=== PATIENT | male | born 1970 | race Caucasian/White ===

== ENCOUNTER 2022-11-12 14:36 | Emergency (ER) | payer OTHER, SELFPAY ==
[2022-11-12 14:41] VITALS: BP 140/86; PULSE 116; O2SAT 98
[2022-11-12 14:43] VITALS: BP 155/78; PULSE 71; RESP 19; TEMP 36.6; O2SAT 99; BMI 28.9
--- NOTE | 2022-11-12 14:43 | ED.DENTAL ---
HPI - Dental/Oral General Chief complaint: Dental/Oral <STALIN Bal Last Filed: 11/12/22 14:51> Stated complaint: TOOTH INF,PAIN,ANTIBIOTICS X3 DAYS <STALIN Bal Last Filed: 11/12/22 14:51> Time Seen by Provider: 11/12/22 15:08 <STALIN Bal Last Filed: 11/12/22 14:51> Source: patient <STALIN Monae Last Filed: 11/12/22 15:22> Mode of arrival: ambulatory <STALIN Monae Last Filed: 11/12/22 15:22> Limitations: no limitations <STALIN Monae Last Filed: 11/12/22 15:22> History of Present Illness HPI Narrative: 52-year-old male presents with dental pain to the left lower molar region worsening despite taking amoxicillin clavulanic acid for the past 5 days he states he thinks it is infected and antibiotics at helping. He says his main concern is he is having severe pain. Ibuprofen has not helped. Denies fevers, chills, changes in voice, chest pain, shortness of breath, nausea, vomiting, abdominal pain, headache, vision changes, dizziness , neck pain. Has not yet seen a dentist <STALIN Monae Last Filed: 11/12/22 15:22> Related Data Home medications: Previous Rx's Medication Instructions Recorded amoxicillin 875 mg-potassium 1 tab PO Q12H 10 days #20 tabs 11/07/22 clavulanate 125 mg tablet ibuprofen 600 mg tablet 600 mg PO Q6H PRN pain #60 tabs 11/07/22 morphine 15 mg immediate release 15 mg PO Q6H PRN pain 5 days #10 11/12/22 tablet tabs <STALIN Bal Last Filed: 11/12/22 14:51> Allergies/adverse reactions: Allergies Allergy/AdvReac Type Severity Reaction Status Date / Time No Known Allergies Allergy Verified 11/12/22 14:43 <STALIN Bal Last Filed: 11/12/22 14:51> Review of Systems Review of Systems: Constitutional : No Fever, No Chills ENT/Mouth : No swallowing difficulty, no change in voice, positive dental pain, positive jaw pain, positive facial swelling Eyes: No Eye Pain, No Swelling Cardiovascular : No Chest Pain, No SOB Respiratory : No Cough, No Sputum Gastrointestinal : No Nausea, No Vomiting, No Diarrhea Genitourinary : No Dysuria Musculoskeletal : No Myalgias Skin : No rash Neuro : No Weakness, No Numbness, No Headache <STALIN Monae - Last Filed: 11/12/22 15:22> Yes all other systems are reviewed and are negative <STALIN Monae - Last Filed: 11/12/22 15:22> [facility] Past Medical History Attestation statement: The following information was validated with the patient. <STALIN Monae - Last Filed: 11/12/22 15:22> Source: old records reviewed and nursing notes reviewed <STALIN Monae - Last Filed: 11/12/22 15:22> Physical Exam Vital Signs: Vital Signs: Last Vital Signs Temp 98 F 11/12/22 14:43 Pulse 71 11/12/22 14:43 Resp 19 11/12/22 14:43 BP 155/78 H 11/12/22 14:43 Pulse Ox 99 11/12/22 14:43 O2 Del Method Room Air 11/12/22 14:43 BMI result Body Mass Index 28.9 <STALIN Bal - Last Filed: 11/12/22 14:51> Vital Signs: Last Vital Signs Temp 98 F 11/12/22 14:43 Pulse 71 11/12/22 14:43 Resp 11/12/22 14:43 BP 155/78 H 11/12/22 14:43 Pulse Ox 99 11/12/22 14:43 O2 Del Method Room Air 11/12/22 14:43 BMI result Body Mass Index 28.9 vss <STALIN Monae - Last Filed: 11/12/22 15:22> Appearance: Alert.? Oriented X3.? No acute distress.? Head: Normocephalic, atraumatic, no step-offs or deformities Eyes: Pupils equal, round and reactive to light.? ENT: Pharynx normal.???Significant tooth decay on tooth 21, 20, and 18.? Multiple missing and broken teeth.? Halitosis noted. No trismus. Patient controlling secretions well. Neck: Normal inspection.? Neck supple.? CVS: Normal heart rate and rhythm.? Pulses normal.? Respiratory: No respiratory distress.? Breath sounds normal.? Abdomen: Soft and nontender.? Skin: Skin warm and dry.? Normal skin color.? Normal skin turgor.? Extremities: No lower extremity edema.? No calf ttp. 5/5 strength to bilateral upper and lower extremities Back: No midline tenderness, no C-spine tenderness, full range of motion, no CVA tenderness bilaterally Neuro: Oriented X 3.? No motor deficit.? No sensory deficit. CN 2-12 intact <STALIN Monae - Last Filed: 11/12/22 15:22> Course Course Course Narrative: RME: 52yo M w/with a past medical history of dental caries currently on Augmentin since 11/07 after being evaluated in Urgent Care presenting to the ED via EMS complaining of persistent/worsening pain. Reports compliance with antibiotic + multiple dental caries. Left lower incisor broken with gingival tenderness. No fluctuance or induration. Patient pale, appears very uncomfortable, will need pain control Full HPI, ROS and PE to be performed by primary ED provider. <STALIN Bal - Last Filed: 11/12/22 14:51> Reevaluation(s) Reevaluation #1: Patient to be discharged home with morphine &tordol advised return with new or worsening symptoms educated him to continue taking Augmentin. And follow-up with dentist as soon as possible. Educated patient on diagnosis and treatment plan, answered all question, patient verbalizes understanding. At this time patient will be discharged home, advised to return with new or worsening symptoms. Educated on worrisome signs and symptoms and when to return. At this time I feel comfortable discharge home. Patient verbalizes that he has an appointment this coming week with dentist on [facility] <STALIN Monae - Last Filed: 11/12/22 15:22> Time: 15:18 <STALIN Monae - Last Filed: 11/12/22 15:22> Medications Administered Discontinued Medications Generic Name Dose Route Start Last Admin Trade Name Freq PRN Reason Stop Dose Admin Morphine Sulfate 15 mg 11/12/22 15:11 11/12/22 15:18 Morphine Sulfate Immed Release 15 Mg Tablet PO 11/12/22 15:12 15 mg ONCE ONE Administration <STALIN Bal Last Filed: 11/12/22 14:51> Medications Administered Discontinued Medications Generic Name Dose Route Start Last Admin Trade Name Casie PRN Reason Stop Dose Admin Morphine Sulfate 15 mg 11/12/22 15:11 11/12/22 15:18 Morphine Sulfate Immed Release 15 Mg Tablet PO 11/12/22 15:12 15 mg ONCE ONE Administration <STALIN Monae Last Filed: 11/12/22 15:22> Medical Decision Making Medical Decision Making MDM Narrative: 52-year-old male presents with dental pain for the past week not improving despite oral antibiotics and ibuprofen. Has not yet seen a dentist. Physical exam significant for Pharynx normal.???Significant tooth decay on tooth 21, 20, and 18.? Multiple missing and broken teeth.? Halitosis noted. No trismus. Patient controlling secretions well. This is likely dental caries, no signs of abscess. No signs of airway compromise. No trismus. Plan will give him morphine for pain and have him follow up with Dentistry. No need for further imaging I do not suspect abscess no fluctuance on exam. <STALIN Monae Last Filed: 11/12/22 15:22> Differential Diagnosis Differential Diagnoses: The differential diagnosis associated with the presentation includes <STALIN Monae Last Filed: 11/12/22 15:22> This is likely dental caries, no signs of abscess. No signs of airway compromise. No trismus. <STALIN Monae Last Filed: 11/12/22 15:22> Admission/Observation Consideration of admission/observation: Escalation of care including admission/observation considered <STALIN Monae Last Filed: 11/12/22 15:22> Prescription Management I considered prescription management with: Pain Medication <STALIN Monae Last Filed: 11/12/22 15:22> Core Measures AMI core measures followed: Yes <STALIN Monae Last Filed: 11/12/22 15:22> Measure exclusions: not indicated <STALIN Monae Last Filed: 11/12/22 15:22> Discharge Plan Discharge Clinical Impression: Pain due to dental caries, Dental caries <STALIN Bal Last Filed: 11/12/22 14:51> Patient Disposition: Home, Self-Care <STALIN Bal Last Filed: 11/12/22 14:51> Additional Instructions: Take your medications as prescribed. If you were prescribed antibiotics today, it is important that you take your medication to their entirety, do not skip any doses, do not finish them early. Follow-up with your primary care provider this week. Return to the emergency department with new or worsening symptoms. Such as fevers, chills, chest pain, shortness of breath, nausea, vomiting, dizziness, headache, vision changes, lethargy In case of emergency call 911 Toradol has been sent to your pharmacy, you tolerated this well in the department. Please take this as prescribed do not take this with ibuprofen, or other NSAIDs, do not mix this with alcohol. Side effects of this medication including increased risk for bleeding and possible kidney injury. A narcotic has been sent to your pharmacy please take this as prescribed. Do not take more than the prescribed dose. Narcotic medications can cause addiction. Please do not mix them with alcohol. Do not take them while driving or operating machinery. Do not take them with any other narcotics. Do not share them with friends or family. They can cause constipation. Take them only for severe pain. <STALIN Bal Last Filed: 11/12/22 14:51> Prescriptions: New morphine 15 mg tablet 15 mg PO Q6H PRN (Reason: pain) 5 Days Qty: 10 0RF Rx Instructions: Partial Fill upon patient request. No Action amoxicillin-pot clavulanate 875-125 mg tablet 1 tab PO Q12H 10 Days Qty: 20 0RF ibuprofen 600 mg tablet 600 mg PO Q6H PRN (Reason: pain) Qty: 60 0RF <STALIN Bal Last Filed: 11/12/22 14:51> Referrals: ED Physician,Generic [Emergency Provider] - 2 days <STALIN Bal Last Filed: 11/12/22 14:51> Stand Alone Forms: Work/School Release <STALIN Bal - Last Filed: 11/12/22 14:51>
[2022-11-12] MEDS: Morphine Sulfate Immed Release 15 MG TABLET PO (15:18)
--- NOTE | 2022-11-12 15:20 | PC.NURSE ---
pt medicated per mar for 10/10 left tooth pain
[2022-11-12] MEDS: Ketorolac Tromethamine 15 MG/ML VIAL 30 MG IM (15:34)
== END 2022-11-12 15:45 | disposition home or self-care (01) ==
PROVIDERS: Emergency Provider Emergency Medicine
DX: K02.9 Dental caries, unspecified (principal); Z79.899 Other long term (current) drug therapy
CPT/HCPCS: 99283; J1885

== ENCOUNTER 2023-01-22 22:42 | Emergency (ER) | payer OTHER, SELFPAY ==
--- NOTE | ~2023-01-22 | CT_ITS ---
EXAMINATION: CT ABDOMEN AND PELVIS WITH CONTRAST CLINICAL INFORMATION: Periumbilical right-sided abdominal pain COMPARISON: None available. TECHNIQUE: Multidetector volumetric images were obtained from the superior aspect of the liver through the pubic symphysis following administration 85 mL of Omnipaque 350 intravenous contrast. Sagittal and coronal reformatted images were obtained on the technologist's workstation. Oral contrast: No This CT examination was performed using dose optimization techniques as appropriate, variously including the following: *Automated exposure control *Adjustment of mA and/or kV according to patient size (this includes techniques or standardized protocols for targeted exams where dose is matched to indication/reason for exam; i.e. extremities or head) *Use of iterative reconstruction technique DLP: 553 mGy-cm FINDINGS: LUNG BASES: The visualized lung bases are unremarkable. LIVER, GALLBLADDER, AND BILIARY TREE: The liver is normal in size, shape, and attenuation. No focal hepatic lesion or biliary ductal dilatation is present. The gallbladder is unremarkable with no evidence of radiopaque gallstones, gallbladder wall thickening, or obvious pericholecystic inflammatory changes. PANCREAS: Unremarkable. SPLEEN: Mild splenomegaly at 12.3 cm. ADRENAL GLANDS: Unremarkable. KIDNEYS AND URETERS: The kidneys are normal in size, shape, and attenuation. No hydronephrosis, hydroureter, or calculi seen. No perinephric stranding. BLADDER: Unremarkable. GASTROINTESTINAL TRACT: The colon is unremarkable. The terminal ileum is of normal caliber. Some more proximal small bowel loops are mildly dilated and fluid-filled, as large as 2.8 cm. A definite transition zone is not seen. Some minimal inflammatory changes are seen around some of bowel loops. The appendix appears normal. ABDOMINAL WALL: No significant hernia is appreciated. LYMPH NODES: No retroperitoneal lymphadenopathy. VASCULAR: Unremarkable. PELVIC VISCERA: Unremarkable. OSSEOUS STRUCTURES: Unremarkable. CT/CT abdomen pelvis w IV con IMPRESSION: 1. Mildly dilated fluid-filled small bowel loops with some minimal inflammatory changes around some of the small bowel loops. Findings could represent enteritis. A definite transition zone is not seen to suggest mechanical small bowel obstruction.. The terminal ileum is of normal caliber. 2. The appendix appears normal. 3. Mild splenomegaly. Fleischner guidelines were followed.
[2023-01-22 23:20] VITALS: BP 122/83; PULSE 84; O2SAT 97; BMI 28.9
[2023-01-22 23:24] VITALS: BP 117/75; PULSE 66; RESP 14; TEMP 36.8; O2SAT 96
--- NOTE | 2023-01-22 23:27 | ECG_ITS ---
Test Reason : ABD PAIN Blood Pressure : / mmHG Vent. Rate : 069 BPM Atrial Rate : 069 BPM P-R Int : 136 ms QRS Dur : 078 ms QT Int : 400 ms P-R-T Axes : 054 -14 051 degrees QTc Int : 428 ms Normal sinus rhythm Normal ECG No previous ECGs available Referred By: Generic ED Physician Electronically Signed By:Sandeep Ferguson
[2023-01-22 23:41] LABS: MANUAL DIFF FLAG NO
[2023-01-22 23:43] LABS: Basophils Absolute Auto 0.1 X10*3/uL (0.0-0.2); Basophils Percent Auto 0.5 % (0-2); Eosinophils Absolute Auto 0.2 X10*3/uL (0.0-0.4); Eosinophils Percent Auto 1.3 % (0-4); Hematocrit 44.7 % (42.0-52.0); Hemoglobin 14.3 g/dl (14.0-18.0); Imm Gran Abs Auto 0.09 X10*3/uL (0.00-0.03); Imm Gran Pct Auto 0.5 % (0.0-0.4); Lymphocytes Absolute Auto 2.1 X10*3/uL (1.2-4.9); Lymphocytes Percent Auto 11.9 % (20-40); Mean Corpuscular Hemoglobin 27.2 pg (27.0-33.0); Mean Platelet Volume 9.9 fL (9.4-12.4); Monocytes Absolute Auto 0.9 X10*3/uL (0.1-1.2); Monocytes Percent Auto 5.3 % (2-11); Neutrophils Absolute Auto 14.1 x10*3/uL (2.0-8.3); Neutrophils Percent Auto 80.5 % (45-73); Platelet Count 305 X10*3/uL (160-400); Red Blood Count 5.26 X10*6/uL (4.60-5.80); White Blood Count 17.5 X10*3/uL (4.8-10.8)
[2023-01-22] MEDS: fentaNYL citrate/PF 100 MCG/2 ML VIAL 25 MCG IVPUSH (23:45)
[2023-01-22] MEDS: ondansetron HCL 4 MG/2 ML VIAL IVPUSH (23:46)
--- NOTE | 2023-01-22 23:57 | MHC.EDTECH ---
This tech assumed care of pt at 2300,Pt was placed in hospital attire, vitals taken and EKG done. UA collected and sent to lab. Call blandon within reach
[2023-01-23 00:05] LABS: Alanine Aminotransferase 11 U/L (0-40); Albumin Level 4.3 g/dL (3.5-5.0); Alkaline Phosphatase 83 U/L (39-117); Anion Gap 15 (12-20); Aspartate Amino Transferase 16 U/L (5-37); Bilirubin Total 0.2 mg/dL (0.0-1.0); Blood Urea Nitrogen 12 mg/dL (9-16); Calcium 9.7 mg/dL (8.4-10.2); Carbon Dioxide 30 mmol/L (22-29); Chloride 99 mmol/L (96-108); Creatinine Clr Calc Pharmacy 94.1; Estimated Glomerular Filt Rate > 60; Ethanol < 10 mg/dL; Glucose Random 109 mg/dL (60-115); Lipase 17 U/L (8-78); Potassium 4.1 mmol/L (3.3-5.1); Sodium 140 mmol/L (135-145); Total Protein 7.2 g/dL (6.5-8.0)
--- NOTE | 2023-01-23 00:05 | ED_ITS ---
HPI - Abdominal Pain General Chief Complaint: Abdominal Pain Stated Complaint: abd pain, per ems Time Seen by Provider: 01/22/23 23:33 Source: patient Mode of arrival: EMS History of Present Illness HPI narrative: 52-year-old male who arrives via EMS with onset of periumbilical discomfort this started approximately 1500 this afternoon and is associated with nausea and vomiting, chills and reports a burning sensation and has continued to pass flatus. He denies any intra-abdominal surgeries. Related Data Previous Rx's Medication Instructions Recorded amoxicillin 875 mg-potassium 1 tab PO Q12H 10 days #20 tabs 11/07/22 clavulanate 125 mg tablet ibuprofen 600 mg tablet 600 mg PO Q6H PRN pain #60 tabs 11/07/22 ketorolac 10 mg tablet 10 mg PO TID PRN pain 5 days #15 11/12/22 tabs morphine 15 mg immediate release 15 mg PO Q6H PRN pain 5 days #10 11/12/22 tablet tabs ondansetron 4 mg disintegrating 4 mg PO Q8H PRN nausea and 01/23/23 tablet vomiting #7 tabs Allergies Allergy/AdvReac Type Severity Reaction Status Date / Time No Known Allergies Allergy Verified 11/12/22 14:43 Review of Systems Review of Systems Pertinent positives and negatives as stated in HPI [facility] Social History Social History Alcohol intake: current Alcohol intake frequency: holidays/special occasions only Smoked in Last 30 Days: Yes Use of substances other than those prescribed or required for medical reasons: No Physical Exam ED Vital Signs: Vital Signs - 24 hr 01/22/23 23:24 Temperature 98.3 F Pulse Rate 66 Respiratory Rate 14 Blood Pressure 117/75 Pulse Oximetry 96 Oxygen Delivery Method Room Air BMI result Body Mass Index 28.9 VITAL SIGNS: Reviewed. GENERAL: Well developed, well nourished, in moderate distress. HEAD: Normocephalic/atraumatic EYES: PERRLA, EOMI EARS: Ext canals without abnormality NOSE: Nares patent bilateral OROPHARYNX: no oral lesions noted, posterior pharynx clear NECK: Supple, no adenopathy LUNGS: Normal breath sounds. No adventitious sounds or accessory muscle use. SpO2<96> CARDIOVASCULAR: Regular rate and rhythm without noted murmurs ABDOMEN: Soft, periumbilical pain that extends over into the right lower quadrant without rebound, non-distended with bowel sounds. MUSCULOSKELETAL: No tenderness, deformities, or effusions noted on gross inspection. EXTREMITIES: No cyanosis, clubbing or edema. SKIN: Inspection of the skin reveals no rashes NEUROLOGIC: Alert and oriented x 4. Strength and sensation to light touch were grossly intact x 4. Medical Decision Making Medical Decision Making [facility] Narrative: 52-year-old male with history and clinical presentation, DDX: Gastritis, panc reatitis, cholecystitis, appendicitis. I reviewed all investigations and hematologic indices are consistent with stress leukocytosis with left shift otherwise no thrombocytopenia or anemia noted. Ch emistry indices are negative for electrolyte derangements, PAULIE and no derangements of liver enzymes or lipase values so doubt pancreatitis. Urinalysis negative for acute infection, but UDS positive for fentanyl and cocaine which is relevant in the setting of the CT scan which is negative for evidence this is just cholecystitis or acute appendicitis instead demonstrates inflammatory changes of the small bowel. These findings may be consistent with a gastroenteritis or reaction to illicit substances. Patient has received 2 treatments of 4 mg of Zofran, IV fluids as well as 10 mg Compazine and the nausea/vomiting appears to be under better control. EKG without acute ischemic findings. Differential Diagnosis Differential Diagnoses: The differential diagnosis associated with the presentation includes Please see the discussion above Admission/Observation Consideration of admission/observation: Escalation of care including admission/observation considered Please see the discussion above Lab Data [facility] Lab Attestation statement: I reviewed the patient's lab results. Please see the discussion above 01/22/23 23:36 01/22/23 23:36 Labs: Lab Results 01/22/23 01/22/23 01/23/23 Range/Units 23:36 23:36 00:00 WBC 17.5 H (4.8-10.8) X10*3/uL RBC 5.26 (4.60-5.80) X10*6/uL Hgb 14.3 (14.0-18.0) g/dl Hct 44.7 (42.0-52.0) % MCV 85.0 (80.0-98.0) fL MCH 27.2 (27.0-33.0) pg MCHC 32.0 (31.0-36.0) g/dl RDW 14.0 (11.0-16.0) % Plt Count 305 (160-400) X10*3/uL MPV 9.9 (9.4-12.4) fL Immature Gran % (Auto) 0.5 H (0.0-0.4) % Neut % (Auto) 80.5 H (45-73) % Lymph % (Auto) 11.9 L (20-40) % Stafford % (Auto) 5.3 (2-11) % Eos % (Auto) 1.3 (0-4) % Baso % (Auto) 0.5 (0-2) % Lymph # (Auto) 2.1 (1.2-4.9) X10*3/uL Stafford # (Auto) 0.9 (0.1-1.2) X10*3/uL Eos # (Auto) 0.2 (0.0-0.4) X10*3/uL Baso # (Auto) 0.1 (0.0-0.2) X10*3/uL Abs Immat Gran (auto) 0.09 H (0.00-0.03) X10*3/uL Absolute Neuts (auto) 14.1 H (2.0-8.3) x10*3/uL Absolute Nucleated RBC 0.000 (0.0-0.012) X10*3/uL Nucleated RBC % (auto) 0.0 (0.0-0.2) /100WBC Sodium 140 (135-145) mmol/L Potassium 4.1 (3.3-5.1) mmol/L Chloride 99 (96-108) mmol/L Carbon Dioxide 30 H (22-29) mmol/L Anion Gap 15 (12-20) BUN 12 (9-16) mg/dL Creatinine 0.98 (0.5-1.4) mg/dL Estim Creat Clear Calc 94.1 Estimated GFR > 60 Random Glucose 109 (60-115) mg/dL Calcium 9.7 (8.4-10.2) mg/dL Total Bilirubin 0.2 (0.0-1.0) mg/dL AST 16 (5-37) U/L ALT 11 (0-40) U/L Alkaline Phosphatase 83 (39-117) U/L Total Protein 7.2 (6.5-8.0) g/dL Albumin 4.3 (3.5-5.0) g/dL Lipase 17 (8-78) U/L Urine Color Yellow Urine Appearance Clear Urine pH 7.5 (5.0-9.0) Ur Specific [place] >= 1.030 H (1.005-1.025) Urine Protein Trace (Neg-Trace) mg/dL Urine Glucose (UA) Negative (Negative) mg/dL Urine Ketones Trace (Negative) mg/dL Urine Blood Negative (Negative) Urine Nitrite Negative (Negative) Ur Leukocyte Esterase Negative (Negative) Urine Opiates Screen (Not Detect) Urine Fentanyl Screen (Not Detect) Ur Barbiturates Screen (Not Detect) Ur Phencyclidine Scrn (Not Detect) Ur Amphetamines Screen (Not Detect) U Benzodiazepines Scrn (Not Detect) Urine Cocaine Screen (Not Detect) U Marijuana (THC) Screen (Not Detect) Ethyl Alcohol < 10 mg/dL 01/23/23 Range/Units 00:00 WBC (4.8-10.8) X10*3/uL RBC (4.60-5.80) X10*6/uL Hgb (14.0-18.0) g/dl Hct (42.0-52.0) % MCV (80.0-98.0) fL MCH (27.0-33.0) pg MCHC (31.0-36.0) g/dl RDW (11.0-16.0) % Plt Count (160-400) X10*3/uL MPV (9.4-12.4) fL Immature Gran % (Auto) (0.0-0.4) % Neut % (Auto) (45-73) % Lymph % (Auto) (20-40) % Stafford % (Auto) (2-11) % Eos % (Auto) (0-4) % Baso % (Auto) (0-2) % Lymph # (Auto) (1.2-4.9) X10*3/uL Stafford # (Auto) (0.1-1.2) X10*3/uL Eos # (Auto) (0.0-0.4) X10*3/uL Baso # (Auto) (0.0-0.2) X10*3/uL Abs Immat Gran (auto) (0.00-0.03) X10*3/uL Absolute Neuts (auto) (2.0-8.3) x10*3/uL Absolute Nucleated RBC (0.0-0.012) X10*3/uL Nucleated RBC % (auto) (0.0-0.2) /100WBC Sodium (135-145) mmol/L Potassium (3.3-5.1) mmol/L Chloride (96-108) mmol/L Carbon Dioxide (22-29) mmol/L Anion Gap (12-20) BUN (9-16) mg/dL Creatinine (0.5-1.4) mg/dL Estim Creat Clear Calc Estimated GFR Random Glucose (60-115) mg/dL Calcium (8.4-10.2) mg/dL Total Bilirubin (0.0-1.0) mg/dL AST (5-37) U/L ALT (0-40) U/L Alkaline Phosphatase (39-117) U/L Total Protein (6.5-8.0) g/dL Albumin (3.5-5.0) g/dL Lipase (8-78) U/L Urine Color Urine Appearance Urine pH (5.0-9.0) Ur Specific [place] (1.005-1.025) Urine Protein (Neg-Trace) mg/dL Urine Glucose (UA) (Negative) mg/dL Urine Ketones (Negative) mg/dL Urine Blood (Negative) Urine Nitrite (Negative) Ur Leukocyte Esterase (Negative) Urine Opiates Screen Not Detected (Not Detect) Urine Fentanyl Screen POSITIVE H (Not Detect) Ur Barbiturates Screen Not Detected (Not Detect) Ur Phencyclidine Scrn Not Detected (Not Detect) Ur Amphetamines Screen Not Detected (Not Detect) U Benzodiazepines Scrn Not Detected (Not Detect) Urine Cocaine Screen POSITIVE H (Not Detect) U Marijuana (THC) Screen Not Detected (Not Detect) Ethyl Alcohol mg/dL Independent Interpretation I performed an independent interpretation of an: EKG Interpretation: Normal sinus rhythm, HR-69, no STEMI, NH/QRS/QTC is within normal limits. Radiology Impression Radiologist Impression: No appendicitis or cholecystitis, otherwise my interpretation is in agreement with radiology's impression. Medications Administered Discontinued Medications Generic Name Dose Route Start Last Admin Trade Name Freq PRN Reason Stop Dose Admin Fentanyl 25 mcg 01/22/23 23:36 01/22/23 23:45 Fentanyl Citrate/Pf 100 Mcg/2 Ml Vial IVPUSH 01/22/23 23:37 25 mcg ONCE ONE Administration Protocol Sodium Chloride 1,000 mls @ 999 mls/hr 01/22/23 23:45 01/23/23 00:35 Ns IV 01/23/23 00:45 999 mls/hr .Q1H1M PALLAVI Administration Iohexol 85 ml 01/23/23 00:29 01/23/23 00:30 Iohexol 350 Mg/Ml 100 Ml Infus..Btl IV 01/23/23 00:30 85 ml ONCE ONE Administration Ondansetron HCl 4 mg 01/22/23 23:35 01/22/23 23:46 Ondansetron Hcl 4 Mg/2 Ml Vial IVPUSH 01/22/23 23:36 4 mg ONCE ONE Administration Prochlorperazine Edisylate 10 mg 01/23/23 00:15 01/23/23 00:34 Prochlorperazine Edisylate 10 Mg/2 Ml Vial IVPUSH 01/23/23 00:16 10 mg ONCE ONE Administration Critical Care Time Critical Care Time Critical Care Time: Yes Total Critical Care Time: 30 Attestation: I personally attest to this time spent taking care of the patient. Discharge Plan Discharge Clinical Impression: Gastroenteritis, Polysubstance use disorder Patient Disposition: Still a Patient Instructions: Gastroenteritis (ED), Polysubstance Abuse (ED) Additional Instructions: 1. Follow-up with your primary care provider at your earliest convenience. 2. Recommend increasing water intake, I have provided you with a prescription to help facilitate this. Recommend a bland diet for the next 24-48 hours. Return to the ER for any worsening symptoms. Prescriptions: New ondansetron 4 mg tablet,disintegrating 4 mg PO Q8H PRN (Reason: nausea and vomiting) Qty: 7 0RF No Action morphine 15 mg tablet 15 mg PO Q6H PRN (Reason: pain) 5 Days Qty: 10 0RF Rx Instructions: Partial Fill upon patient request. ketorolac 10 mg tablet 10 mg PO TID PRN (Reason: pain) 5 Days Qty: 15 0RF amoxicillin-pot clavulanate 875-125 mg tablet 1 tab PO Q12H 10 Days Qty: 20 0RF ibuprofen 600 mg tablet 600 mg PO Q6H PRN (Reason: pain) Qty: 60 0RF
[2023-01-23 00:07] LABS: Appearance Urine Clear; Color Urine Yellow; Glucose Urine UA Negative (Negative); Leukocyte Esterase Urine Negative (Negative); Nitrite Urine Negative (Negative); PH 7.5 (5.0-9.0); Specific Gravity - Urine >= 1.030 (1.005-1.025); Urine Blood Negative (Negative); Urine Ketones Trace mg/dL (Negative); Urine Protein Trace mg/dL (Neg-Trace)
[2023-01-23 00:30] LABS: Amphetamine Screen Urine Not Detected (Not Detect); Barbiturates, Urine Not Detected (Not Detect); Benzodiazepines Screen Urine Not Detected (Not Detect); Cannabinoid Screen Urine Not Detected (Not Detect); Cocaine Screen Urine POSITIVE (Not Detect); Fentanyl, urine POSITIVE (Not Detect); Opiate Screen Urine Not Detected (Not Detect); Phencyclidine Screen Urine Not Detected (Not Detect)
[2023-01-23] MEDS: iohexoL 350 MG/ML 100 ML INFUS..BTL 85 ML IV (00:30)
[2023-01-23] MEDS: Prochlorperazine Edisylate 10 MG/2 ML VIAL IVPUSH (00:34)
[2023-01-23] MEDS: 0.9 % Sodium Chloride 1,000 ML 999 ML IV (00:35)
[2023-01-23 02:51] VITALS: BP 121/70; PULSE 68; RESP 18; TEMP 36.6; O2SAT 98
[2023-01-23] MEDS: Mag&Al/Sim/Diphenhyd/Lidocaine 10 ML ORAL.SUSP PO (02:56)
== END 2023-01-23 03:02 | disposition still patient (30) ==
PROVIDERS: Emergency Provider Student in an Organized Health Care Education/Training Program
DX: K52.9 Noninfective gastroenteritis and colitis, unspecified (principal); F11.10 Opioid abuse, uncomplicated; R10.2 Pelvic and perineal pain; R07.89 Other chest pain; R16.1 Splenomegaly, not elsewhere classified; Z79.899 Other long term (current) drug therapy
CPT/HCPCS: 36415; 74177; 80053; 80307; 81003; 83690; 85025; 93005; 96361; 96374; 96375; 99284; 99285; J2405; J3010; Q9967

== ENCOUNTER → 2023-01-22 23:27 | Outpatient (BNV) | payer OTHER, SELFPAY | PROVIDERS: Emergency Provider Student in an Organized Health Care Education/Training Program; Visit Provider Internal Medicine Cardiovascular Disease | DX: R10.9 Unspecified abdominal pain (principal) | CPT/HCPCS: 93010 ==